=== PATIENT | male | born 1965 | race Asian ===

== ENCOUNTER → 2018-05-23 | Outpatient (CLI) | payer OTHER | LOC: CAT 09:43 | DX: K76.0 Fatty (change of) liver, not elsewhere classified (principal); J98.4 Other disorders of lung ==

== ENCOUNTER → 2018-12-01 | Outpatient (CLI) | payer OTHER | LOC: CAT 10:00 | DX: J43.9 Emphysema, unspecified (principal); J98.4 Other disorders of lung ==

== ENCOUNTER → 2019-11-14 | Outpatient (CLI) | payer OTHER | LOC: RAD 11:56 | PROVIDERS: ATTEND Neuromusculoskeletal Medicine & OMM | DX: J43.2 Centrilobular emphysema (principal); Z85.819 Personal history of malignant neoplasm of unspecified site of lip, oral cavity, and pharynx ==

== ENCOUNTER → 2019-11-22 | Outpatient (CLI) | payer OTHER | LOC: MRI 10:09 | PROVIDERS: ATTEND Neuromusculoskeletal Medicine & OMM | DX: I67.82 Cerebral ischemia (principal); R90.82 White matter disease, unspecified; R41.3 Other amnesia; Z85.819 Personal history of malignant neoplasm of unspecified site of lip, oral cavity, and pharynx ==